=== PATIENT | female | born 2005 | race Caucasian/White ===

== ENCOUNTER 2024-02-14 21:30 | Emergency (ER) | payer SELFPAY ==
[~2024-02-14] VITALS: Ht 160 cm; Wt 89.4 kg
[2024-02-14] MEDS ORDERED: LORazepam 1 MG TAB PO ONE (22:45)
== END 2024-02-15 00:51 | disposition home or self-care (01) ==
LOC: ED 21:30
DX: F41.9 Anxiety disorder, unspecified (principal); F32.A Depression, unspecified; G43.909 Migraine, unspecified, not intractable, without status migrainosus; Z88.2 Allergy status to sulfonamides; Z91.040 Latex allergy status